=== PATIENT | male | born 1965 | race Two or more races ===

== ENCOUNTER 2025-09-25 10:48 | Emergency (ER) | payer BC, SELFPAY ==
[2025-09-25] VITALS (7 sets, daily range): BP systolic 164–205; BP diastolic 74–109; PULSE 32–79; RESP 13–18; TEMP 36.6–37.1; O2SAT 98–100; BMI 28.8
--- NOTE | 2025-09-25 11:02 | XR_ITS ---
EXAMINATION: AP chest single view TECHNIQUE: AP portable upright chest single view Date and time: September 25, 2025, 1127 hours INDICATIONS: Dizziness 3 days. FINDINGS: Normal heart size Lungs are clear. Moderate osteopenia IMPRESSION: No active disease
--- NOTE | 2025-09-25 11:02 | EKG_ITS ---
[facility] Test Date: 2025-09-25 Pat Name: JAMI BAEZ Department: Room: - Gender: Male [employer] Operations [employer]: : 1965 Requested By: Austin Calderón Order Number: [id number] Reading MD: Austin Calderón Measurements Intervals [place] Rate: 65 P: 58 ND: 152 QRS: 69 QRSD: 90 T: 67 QT: 419 QTc: 436 Interpretive Statements SINUS RHYTHM WITH OCCASIONAL SUPRAVENTRICULAR PREMATURE COMPLEXES IN A BIGEMINAL PATTERN MINIMAL ST DEPRESSION [0.025+ mV ST DEPRESSION] ABNORMAL RHYTHM ECG No previous ECG available for comparison /store/S0/[id number].pdf
--- NOTE | 2025-09-25 11:04 | PD.EDADULT ---
ED General RME/HPI General Chief complaint: Dizziness Stated complaint: DIZZY X3 DAYS WITH N/V 2 DAYS AGO Time Seen by Provider: 09/25/25 10:50 Arrival date/time: 09/25/25 10:48 CC: Dizziness lightheadedness HPI onset for the past 2 days patient denies any chest pain or shortness of breath patient was started on losartan 2 days ago [facility] Patient was noted on initial assessment to have a heart rate of 32. He is awake alert and oriented no other complaints. Review of the medical record show the patient has no past medical history with this facility. Related Data Previous Rx's ?Medication ?Instructions ?Recorded meclizine 50 mg tablet 50 mg PO QDAY #10 tabs 09/25/25 Allergies Allergy/AdvReac Type Severity Reaction Status Date / Time No Known Allergies Allergy Unverified 09/25/25 13:12 Review of Systems Review of Systems Narrative Review of Systems: GEN: No fever, no chills, no weight loss EYES: No discharge, no visual changes, no pain HEENT: No ear pain, no congestion, no sore throat PULM: No shortness of breath, no cough, no congestion CV: No chest pain, no dyspnea on exertion, no palpitations GI: No nausea, no vomiting, no diarrhea, no pain, no constipation : No frequency, no urgency, no dysuria MUSC/SKEL: No joint pain, no back pain SKIN: No rash PSYCH: No hallucinations, no depression HEME/LYMPH: No easy bleeding or bruising tendencies NEURO: + weakness, no headache, + dizziness Past Medical History Social History SMOKING STATUS: Never smoker ED Exam Narrative Physical exam: [General: Not in any acute distress Head normocephalic HEENT: Within acceptable limits Neck is supple nontender Chest equal chest rise nontender to palpation Respiratory: Clear to auscultation no wheezes crackles or rubs CV: Rate rhythm is regular, bradycardic, no murmurs rubs or clicks Abdomen is distended secondary to body habitus soft nontender no masses positive bowel sounds all 4 quadrants Back: No CVA tenderness no spinous process tenderness from cervical spine thoracic and lumbar spine Skin: Intact no petechiae rash induration ulceration or crepitus Extremities: Moving all extremity against resistance cap refill less than 2 seconds neurosensory intact Neuro: Awake alert oriented x3 Glascow coma 15 no focal deficits] Course Quality Measures none Orders Category Date Time Status Station Cleaning Porter Q4H START 00 Care 09/25/25 11:17 Completed EKG (ED ONLY) *Do not use* NOW Care 09/25/25 11:02 Completed Insert IV NOW Care 09/25/25 11:15 Completed Orthostatic Vitals NOW Care 09/25/25 12:19 Completed EKG (ED Only) Stat Exams 09/25/25 11:02 Draft XR chest 1V Stat Exams 09/25/25 11:02 Completed B-Type Natriuretic Peptide Stat Lab 09/25/25 11:23 Completed CBC Stat Lab 09/25/25 11:23 Completed Comprehensive Metabolic Panel Stat Lab 09/25/25 11:23 Completed Drug Screen,Urine Stat Lab 09/25/25 11:52 Completed LDH (Lactate Dehydrogenase) Stat Lab 09/25/25 11:23 Completed Magnesium Stat Lab 09/25/25 11:23 Completed Partial Thromboplastin Time Stat Lab 09/25/25 11:23 Completed Prothrombin Time with INR Stat Lab 09/25/25 11:23 Completed Troponin I Stat Lab 09/25/25 11:23 Completed Urinalysis, C/S if Indicated Stat Lab 09/25/25 11:52 Completed Meclizine HCl [Antivert] Med 09/25/25 14:26 Discontinued 50 mg PO X1 ONE hydrALAZINE INJ [Apresoline Inj] Med 09/25/25 13:11 Discontinued 10 mg IVP X1 ONE Vital Signs Vital signs: Vital Signs Temperature 97.8 F 09/25/25 10:59 Pulse Rate 32 L 09/25/25 10:59 Respiratory Rate 16 09/25/25 10:59 Blood Pressure 196/74 H 09/25/25 10:59 Pulse Oximetry (%) 98 09/25/25 10:59 Oxygen Delivery Method Room Air 09/25/25 10:59 Discharge Plan Plan Patient Disposition: HOME (Self Care) Patient condition on transfer: Stable Prescriptions/Referrals Prescriptions/Med Rec: New meclizine 50 mg tablet 50 mg PO QDAY Qty: 10 0RF Referrals: Bowen Mott MD [Primary Care Provider, Family Practice] - In 1 week Problem List Clinical Impression: Vertigo, Hypertension Patient/Caregiver Discharge Instructions Education Materials: ED Dizziness, Uncertain Cause, ED High Blood Pressure ... Print Language: Vietnamese Stand Alone Forms: [facility] Award Info., Work/School Release, Patient Portal Info Letter ITZEL/VIPUL Supervising Physician AYAAN Supervising Physician: Austin Burleson ENP [facility] Clinical Information Provided by: patient Medical Records reviewed [facility] Meds/Rx considered, not ordered None Labs/Rad/Tests considered, not ordered None Chronic Illness/Social Conditions Explain: Recent diagnosis of hypertension EKG Interpretation EKG #1: EKG Interpretation: EKG performed at 1101 shows a ventricular rate of 65 OR interval 152 QRS of 9 0 QTc of 430 the sinus rhythm bigeminal rhythm. Labs Labs: interpreted by ca Lab(s) Interpretation(s): CBC showed no acute leukocytosis anemia thrombocytopenia CMP shows no significant electrolyte imbalances renal impairment transaminitis or T. bili elevation Troponin is negative BNP is unremarkable Coags within acceptable limits Imaging Imaging interpretation: interpreted by ca Imaging Interpretation(s): Chest x-ray is negative Medication Administration(s) Medication Administration History Discontinued Medications Hydralazine HCl (Hydralazine Inj 20 Mg/Ml Vial) 10 mg IVP X1 ONE Stop: 09/25/25 13:12 Last Admin: 09/25/25 13:18 Dose: 10 mg Documented By: ERIC Meclizine HCl (Meclizine Hcl 25 Mg Tablet) 50 mg PO X1 ONE Stop: 09/25/25 14:27 Last Admin: 09/25/25 15:05 Dose: 50 mg Documented By: ERIC
[2025-09-25 11:42] LABS: Basophils # (Auto) 0.1 Thou/mm3 (0.0-0.2); Basophils % (Auto) 1 % (0-2.5); Eosinophils # (Auto) 0.1 Thou/mm3 (0.0-0.5); Eosinophils % (Auto) 1 % (0-10); Hematocrit 46.6 % (41.0-53.0); Hemoglobin 16.0 g/dL (13.5-16.0); Immature Granulocytes Auto 0.07 Thou/mm3 (0.00-0.00); Lymphocytes # (Auto) 0.9 Thou/mm3 (1.0-4.8); Lymphocytes % (Auto) 9 % (10-50); Mean Corpuscular HGB Conc 34.3 g/dl (31.0-37.0); Mean Corpuscular Hemoglobin 29.9 pg (25.0-35.0); Mean Corpuscular Volume 87 fL (80-100); Monocytes # (Auto) 0.5 Thou/mm3 (0.0-0.8); Monocytes % (Auto) 5 % (0-12); Neutrophils # (Auto) 8.3 Thou/mm3 (1.8-7.7); Neutrophils % (Auto) 84 % (37-80); Nucleated Red Blood Cell # 0.00 Thou/mm3 (0.00-0.00); Nucleated Red Blood Cell % 0 /100 WBC (0); Platelet Count 251 Thou/mm3 (140-440); RDW Standard Deviation 39.4 fL (35.1-43.9); Red Blood Count 5.35 Miln/mm3 (4.50-5.90); White Blood Count 9.9 Thou/mm3 (3.8-10.6)
[2025-09-25 11:54] LABS: INR 1.0 (0.9-1.3); Partial Thromboplastin Time 27.2 Seconds (22.0-36.0); Prothrombin Time 10.3 Seconds (9.0-12.2)
[2025-09-25 11:58] LABS: B-Type Natriuretic Peptide < 20 pg/mL (0-100)
[2025-09-25 11:59] LABS: Alanine Aminotransferase 21 U/L (10-49); Albumin, Serum 4.9 gm/dL (3.5-5.0); Albumin/Globulin Ratio 2.0 (1.2-2.2); Alkaline Phosphatase 109 U/L (46-116); Anion Gap 10 (7-16); Aspartate Amino Transferase 15 U/L (0-34); BUN/Creatinine Ratio 15 Ratio (12-20); Bilirubin,Total 0.7 mg/dL (0.3-1.2); Blood Urea Nitrogen 15 mg/dL (9-23); Calcium 8.9 mg/dL (8.3-10.6); Calcium (Corrected) 8.9 mg/dL (8.5-10.1); Carbon Dioxide 24.9 mMol/L (20.0-31.0); Chloride 106 mMol/L (98-107); Creatinine (Component) 1.0 mg/dL (0.6-1.3); Estimated Creatinine Clearance 87.5 mL/min (>60); Globulin 2.5 gm/dL (2.3-3.5); Glucose 104 mg/dL (74-106); LDH (Lactate Dehydrogenase) 163 U/L (120-246); Magnesium 1.9 mg/dL (1.6-2.6); Osmolality,Calculated 282 (275-295); Potassium 4.1 mMol/L (3.4-5.1); Sodium 141 mMol/L (136-145); Total Protein 7.4 gm/dL (5.7-8.2); Troponin I < 0.020 ng/mL (0.0-0.045); eGFR > 60 See Note
[2025-09-25 12:09] LABS: Collection Type, Urine Clean Catch; Squamous Epithelial Cell,Urine 0 /hpf (0-5)
[2025-09-25 12:17] LABS: Bilirubin,Urine Negative (Negative); Blood,Urine Negative (Negative); Clarity,Urine Clear (Clear/Hazy); Color,Urine Colorless (Lt Yel-Yel); Culture Indicated,Urine Not Indicated; Glucose, Urine Negative (Negative); Ketones,Urine Negative (Negative); Leukocyte Esterase,Urine Negative (Negative); Nitrite,Urine Negative (Negative); PH,Urine 7.0 (5.0-7.0); Protein,Urine Negative (Neg - Trace); RBC,Urine 1 /hpf (0-3); Specific Gravity,Urine 1.007 (1.001-1.035); Urobilinogen,Urine Negative mg/dL (0.0-1.0); WBC,Urine 1 /hpf (0-5)
[2025-09-25 12:23] LABS: Amphetamine/Methamp Scrn,U Negative (Negative); Barbiturate Screen,Urine Negative (Negative); Benzodiazepines Screen,Urine Negative (Negative); Benzoylecgonine Screen, Ur Negative (Negative); Fentanyl Screen,Urine Negative (Negative); Opiate Screen,Urine Negative (Negative); THC Screen,Urine Negative (Negative)
[2025-09-25] MEDS: hydrALAZINE INJ 20 MG/ML VIAL 10 MG IVP (13:18)
--- NOTE | 2025-09-25 14:19 | PC.NURSE ---
PER DIRECTOR OPERATING ROOM QUINTEROS TO WALK PT. THIS RN WALKED PT TO NURSE STATION. PT WAS REPORTING 6/10 DIZZINESS WHEN HE WALKED. BP INCREASE TO 199 SYSTOLIC. HEART RATE 85BPM. PROVIDER WAS MADE AWARE
[2025-09-25] MEDS: MECLIZINE HCL 25 MG TABLET 50 MG PO (15:05)
== END 2025-09-25 16:23 | disposition home or self-care (01) ==
PROVIDERS: Registered Nurse General Practice; Emergency Provider Family Medicine; PCP Family Medicine
DX: R42 Dizziness and giddiness (principal); I10 Essential (primary) hypertension; I49.1 Atrial premature depolarization
CPT/HCPCS: 36415; 71045; 80053; 80307; 81001; 83615; 83735; 83880; 84484; 85025; 85610; 85730; 93005; 96374; 99284; J0360; A9270